=== PATIENT | male | born 1940 | race Caucasian/White ===

== ENCOUNTER 2016-08-05 00:26 | Inpatient (IN) ==
--- NOTE | 2016-08-05 00:31 | Emergency Department Note ---
Disposition Clinical Impression: Partial small bowel obstruction Disposition: Admitted As Inpatient Condition: Fair Referrals: NO,PCP [Primary Care Provider] - Forms: Work/School Release, ED Satisfaction Letter Time of Disposition: 02:35 Abdominal Pain HPI - General Chief Complaint: ED Abdominal Pain Stated Complaint: abd pain/poss small bowel obstruction Time Seen by Provider: 08/05/16 00:29 Source: patient Mode of arrival: ambulatory Limitations: no limitations Nursing Notes Reviewed: Yes Vital Signs Reviewed: Yes - History of Present Illness HPI Narrative: 76-year-old male with abdominal pain and distention for the last 3 days. Patient states that he has had decreased by mouth intake since this time. He states that he had an evaluation by his primary care physician Dr. Cortes who ordered x-ray that showed questionable small bowel obstruction. Patient states that he has not been constipated or obstipated, he had a grayish colored bowel movement at 19:00 last night, denies hematochezia, or melena. This was this evening. He states that he is unable to tolerate small amounts of food but after he had the x-ray did have some chicken noodle soup was able to tolerate this without throwing up. Patient denies any emesis. Patient reports that he has a history of a prostate surgery as well as a hernia repair at [place] Denies fever chills weight loss, diarrhea, Pt Subjective Complaint: abdominal pain Onset (ago): day(s) (5) Consistency: intermittent Location: epigastric Pain Severity: moderate Pain Scale: 6 Quality: cramping, aching Radiation: none Improves with: nothing Worsens with: nothing Associated symptoms: Reports: nausea, constipation. Denies: diarrhea, fever, chills Treatments prior to arrival: none - Related Data Home Medications Medication Instructions Recorded Confirmed Ascorbate Calcium [Vitamin C] 500 mg PO DAILY 03/04/16 03/04/16 Aspirin 81 mg PO DAILY 03/04/16 03/04/16 Glucosamine/Methylsulfonylmeth 1 each PO DAILY 03/04/16 03/04/16 [Glucosamine-MSM Caplet] Lisinopril/Hydrochlorothiazide 1 each PO DAILY 03/04/16 03/04/16 [Zestoretic 10-12.5 mg Tablet] Metoprolol XL (24 HR) Succ [Toprol 12.5 mg PO DAILY 03/04/16 03/04/16 XL] Multivitamin [One Daily Essential] 1 each PO DAILY 03/04/16 03/04/16 Naproxen [Naprosyn] 500 mg PO BID 03/04/16 03/04/16 [place]-3/Dha/Epa/Fish Oil [Fish Oil 1 cap PO DAILY 03/04/16 03/04/16 1,000 mg Softgel] Pioglitazone HCl/Metformin HCl 1 each PO DAILY 03/04/16 03/04/16 [Actoplus Met Xr 30-1,000 mg Tb] Probenecid [Benemid] 250 mg PO BID 03/04/16 03/04/16 Simvastatin [Zocor] 20 mg PO HS 03/04/16 03/04/16 Vitamin B Complex 1 each PO DAILY 03/04/16 03/04/16 Previous Rx's Medication Instructions Recorded Cephalexin [Keflex] 500 mg PO TID 7 Days 03/04/16 Hydrocodone/Acetaminophen [[place] 1 each PO Q4-6H PRN #40 tablet 03/04/16 7.5-325 Tablet] Allergies Allergy/AdvReac Type Severity Reaction Status Date / Time No Known Allergies Allergy Verified 03/04/16 13:19 All systems ED: reviewed and negative except as stated. Constitutional: Reports: fever, chills, weakness Cardiovascular: Reports: chest pain, palpitations Respiratory: Reports: cough, dyspnea Gastrointestinal: Reports: as per HPI, abdominal pain, nausea, constipation. Denies: vomiting, diarrhea, hematemesis, melena Genitourinary: Denies: urgency, dysuria Musculoskeletal: Denies: back pain, neck pain Neurological: Denies: headache, weakness Abdominal Pain PMH - Past Medical History Medical history: Reports: cancer, coronary artery disease, diabetes, hypertension Psychiatric history: Reports: no psych history - Social History Smoking status: Never smoker Alcohol use: Reports: occasionally Drug use: Reports: none Physical Exam Constitutional: alert and oriented, in NAD, appears stated age, vital signs reviewed and within normal limits Neck: normal inspection, neck is supple, trachea midline Resp: normal chest inspection, CTA bilaterally, no resp distress CV: RRR, no m/g/r GI: Softly distended abdomen, no rebound or guarding, hypoactive bowel sounds, mild to moderate tenderness to palpation diffusely Back: normal inspection, no tenderness to palpation Neuro: A&O3, no gross motor or sensory deficits bilaterally Skin: No rashes, skin warm, dry, intact Course Course Narrative: 76-year-old male with abdominal exam, moderate tenderness to palpation and an x- ray that showed possible small bowel obstruction with a CT scan of abdomen, IV fluid rehydrate keep nothing by mouth at this time check abdominal labs and reassess - Reevaluation(s) Reevaluation #1: Found to have partial small bowel obstruction, rads favors partial small bowel obstruction versus complete on noncontrast CT scan, is with a nontender nonsurgical abdomen, softly distended, NG tube ordered, patient to be admitted to medicine service Dr. Wells, for serial abdominal exams NG decompression and surgical consult. Time: 02:34 Vital Signs Temperature 98.9 F 08/05/16 00:28 Pulse Rate 67 08/05/16 00:28 Respiratory Rate 18 08/05/16 00:28 Blood Pressure 138/81 08/05/16 00:28 O2 Sat by Pulse Oximetry 97 08/05/16 00:28 Temperature 98.9 F 08/05/16 00:28 Pulse Rate 67 08/05/16 00:28 Respiratory Rate 18 08/05/16 00:28 Blood Pressure 138/81 08/05/16 00:28 O2 Sat by Pulse Oximetry 97 08/05/16 00:28 Oxygen Delivery Oxygen Delivery Room Air Abdominal Pain - MDM Narrative Medical decision making narrative: Partial small bowel obstruction admitted to medicine service NG decompression started in the emergency department nothing by mouth, IV fluids, analgesics - Differential Diagnosis Differential Diagnosis: Likely: abdominal pain non-specific, acute appendicitis , diverticulitis, diverticulosis, pancreatitis, small bowel obstruction - Medical Records Medical records reviewed: Yes I reviewed the patient's medical records. - Lab Data Lab results reviewed: Yes I reviewed the patient's lab results. Result diagrams: 08/05/16 00:58 08/05/16 00:58 Lab Results 08/05/16 08/05/16 08/05/16 Range/Units 00:58 00:58 00:58 WBC 10.5 (4.3-11.1) K/mcL RBC 4.54 (4.19-5.50) M/mcL Hgb 14.3 (12.9-16.9) g/dL Hct 41.4 (37.5-50.1) % MCV 91.2 (83.0-100.0) fL MCH 31.5 (28.0-33.3) pg MCHC 34.5 (31.6-35.5) g/dL RDW 13.0 (11.5-14.5) % Plt Count 267 (140-400) K/mcL MPV 10.4 (9.4-12.4) fL Immature Gran % 0.4 (0-4) % Seg Neutrophils % 64.2 % Lymphocytes % 23.3 % Monocytes % 9.7 % Eosinophils % 1.2 % Basophils % 1.2 % Neutrophils # 6.7 (1.6-8.9) K/mcL Lymphocytes # 2.4 (0.6-4.6) K/mcL Monocytes # 1.0 (0.0-1.3) K/mcL Eosinophils # 0.1 (0.0-0.6) K/mcL Basophils # 0.1 (0.0-0.2) K/mcL Immature Plt Fraction 5.2 (1.1-6.1) % Sodium 138 (136-145) mEq/L Potassium 4.0 (3.5-4.5) mEq/L Chloride 99 (98-109) mEq/L Carbon Dioxide 23 (19-29) mEq/L BUN 23 (8-26) mg/dL Creatinine 1.14 (0.72-1.25) mg/dL Est GFR ( Amer) > 60 (> 60) Est GFR (Non-Af Amer) > 60 (> 60) BUN/Creatinine Ratio 20 (6-26) Glucose 120 H (70-99) mg/dL Calculated Osmolality 291 (280-300) Calcium 10.8 (8.6-10.8) mg/dL Total Bilirubin 1.1 (0.2-1.2) mg/dL Direct Bilirubin 0.4 (0.0-0.5) mg/dL Indirect Bilirubin 0.7 (0.0-1.2) mg/dL AST 30 (5-34) Units/L ALT 36 (0-55) Units/L Alkaline Phosphatase 62 (38-126) Units/L Troponin I 0.03 (0-0.03) ng/mL Serum Total Protein 7.4 (6.0-8.3) g/dL Albumin 3.9 (3.5-5.0) g/dL Globulin 3.5 (2.4-3.5) g/dL Albumin/Globulin Ratio 1.1 (1.1-2.2) Amylase 36 (25-125) Units/L Lipase 24 (8-78) Units/L - Radiology Data Radiology results reviewed: Yes I reviewed the patient's radiology results. Abdomen/Pelvis CT 08/05/16 00:37 IMPRESSION: 1. Small bowel obstruction, probably a partial small bowel obstruction with a possible transition point in the central mesentery. 2. Diverticulosis with no definite evidence for diverticulitis. 3. Cholelithiasis without evidence to suggest acute cholecystitis. 4. Cystic lesion in the pancreatic tail. MRI with MRCP protocol is recommended for further evaluation. 5. Coronary artery disease. D/ / Harvey Jones MD / Harvey Jones MD Interpreting Provider: Harvey Jones MD - EKG Data EKG attestation: Yes I reviewed and interpreted this EKG. EKG shows normal: sinus rhythm (73 bpm FL-2 26 QRS 94 QTc 407) Rhythm: NSR [place]/QRS: normal When compared to previous EKG there are: no significant changes Interpretation: no acute changes - Core Measures AMI Core Measures Followed: No Measure Exclusions: not indicated Attestation Statement - Attestation Attestation: I examined this patient and my medical decision-making was reviewed with the STE[employer] GENERATING POWERPLANT MECHANIC/PA/Advanced Practice Nurse/Resident Physician. I agree with the documented findings, disposition and treatment plan as described except to the extent set forth below.
[2016-08-05] MEDS ORDERED: 0.9 % Sodium Chloride 1,000 ML IVC ONE (00:44)
[2016-08-05] MEDS ORDERED: Dicyclomine 20 MG/2 ML AMPUL IM ONE (00:44)
[2016-08-05] MEDS ORDERED: Ondansetron 4 MG/2 ML VIAL IVP ONE (00:44)
[2016-08-05 01:05] LABS: Basophils # 0.1 K/mcL (0.0-0.2); Basophils % 1.2 %; Eosinophils # 0.1 K/mcL (0.0-0.6); Eosinophils % 1.2 %; Hematocrit 41.4 % (37.5-50.1); Hemoglobin 14.3 g/dL (12.9-16.9); Immature Granulocytes % 0.4 % (0-4); Immature Platelets 5.2 % (1.1-6.1); Lymphocytes # 2.4 K/mcL (0.6-4.6); Lymphocytes % 23.3 %; Mean Corpuscular HGB Conc 34.5 g/dL (31.6-35.5); Mean Corpuscular Hemoglobin 31.5 pg (28.0-33.3); Mean Corpuscular Volume 91.2 fL (83.0-100.0); Mean Platelet Volume 10.4 fL (9.4-12.4); Monocytes % 9.7 %; Neutrophils # 6.7 K/mcL (1.6-8.9); Platelet Count 267 K/mcL (140-400); Red Blood Count 4.54 M/mcL (4.19-5.50); Segmented Neutrophils % 64.2 %
[2016-08-05] MEDS ORDERED: *HR* Morphine 2 MG/ML SYRINGE IVP ONE (01:19)
[2016-08-05 01:24] LABS: Alanine Aminotransferase 36 Units/L (0-55); Albumin 3.9 g/dL (3.5-5.0); Albumin/Globulin Ratio 1.1 (1.1-2.2); Alkaline Phosphatase 62 Units/L (38-126); Amylase 36 Units/L (25-125); Aspartate Amino Transferase 30 Units/L (5-34); BUN/Creatinine Ratio 20 (6-26); Bilirubin,Direct 0.4 mg/dL (0.0-0.5); Bilirubin,Indirect 0.7 mg/dL (0.0-1.2); Bilirubin,Total 1.1 mg/dL (0.2-1.2); Blood Urea Nitrogen 23 mg/dL (8-26); Calcium 10.8 mg/dL (8.6-10.8); Carbon Dioxide 23 mEq/L (19-29); Chloride 99 mEq/L (98-109); Globulin 3.5 g/dL (2.4-3.5); Glucose 120 mg/dL (70-99); Lipase 24 Units/L (8-78); Osmolality,Calculated 291 (280-300); Sodium 138 mEq/L (136-145); Total Protein 7.4 g/dL (6.0-8.3); eGFR For African Americans > 60 (> 60); eGFR For Non-African Americans > 60 (> 60)
[2016-08-05] MEDS ORDERED: *HR* Morphine 2 MG/ML SYRINGE IV ONE (03:52)
--- NOTE | 2016-08-05 05:23 | Internal Med History&Physical ---
Date of Encounter: 08/05/16 Time of Encounter: 05:21 Assessment and Plan (1) Partial small bowel obstruction Current visit: Yes Status: Acute Continue with NG tube, connect NG tube to suction. NPO, iv fluids. Obtain x-ray. Consultation with surgical team. Discussed with patient. (2) Type 2 diabetes mellitus Current visit: Yes Status: Acute Accuchecks. RISS. Qualifiers: Diabetes mellitus complication status: without complication Diabetes mellitus senior care insulin use: without baggageman use Qualified Code(s): E11.9 - Type 2 diabetes mellitus without complications (3) Hypertension Current visit: Yes Status: Acute Continue monitoring. Qualifiers: Hypertension type: essential hypertension Qualified Code(s): I10 - Essential (primary) hypertension (4) DVT prophylaxis Current visit: Yes Status: Acute Heparin sq. Internal Medicine - H&P: HPI Chief complaint: abd pain Admitted From: Emergency Dept Plans for Post Hospital Care: Home History of present illness: Mr. Phillips is a 76 year old male with past medical history of diabetes, hypertension, right ear squamous cell carcinoma, hypertension, presented to the emergency department complaining of progressive abdominal pain in the epigastric area, abdomen distention which started 4 days ago. The patient presented to see his primary care physician who obtained x-rays and was suggestive of a small bowel obstruction. Upon arrival to the emergency department he had CT scan of the abdomen which revealed similar findings, the patient was admitted for further management and workup. A nasogastric tube was placed in the emergency department. She states that for the last few years he has similar events every 6 months or so. His last bowel movement was last night , he denies diarrhea or constipation, he has lost appetite recently. Denies the use of anticoagulants or other blood thinners. However, he takes aspirin occasionally. Past Med Surg Social Fam HX - Past Medical History Medical history: cancer, coronary artery disease, diabetes, hypertension Psychiatric history: no psych history - Past Surgical History Surgical History: herniorrhaphy - Social History Smoking Status: Never smoker Smokeless Tobacco Status: No Alcohol use: occasionally Drug use: none Internal Medicine - H&P: Meds Ascorbate Calcium [Vitamin C] 500 mg PO DAILY 03/04/16 [History] Aspirin 81 mg PO DAILY 03/04/16 [History] Cephalexin [Keflex] 500 mg PO TID 7 Days 03/04/16 [Rx] Glucosamine/Methylsulfonylmeth [Glucosamine-MSM Caplet] 1 each PO DAILY [History] Hydrocodone/Acetaminophen [[place] 7.5-325 Tablet] 1 each PO Q4-6H PRN #40 tablet 03/04/16 [Rx] Lisinopril/Hydrochlorothiazide [Zestoretic 10-12.5 mg Tablet] 1 each PO DAILY [History] Metoprolol XL (24 HR) Succ [Toprol XL] 12.5 mg PO DAILY 03/04/16 [History] Multivitamin [One Daily Essential] 1 each PO DAILY 03/04/16 [History] Naproxen [Naprosyn] 500 mg PO BID 03/04/16 [History] [place]-3/Dha/Epa/Fish Oil [Fish Oil 1,000 mg Softgel] 1 cap PO DAILY 03/04/16 [ History] Pioglitazone HCl/Metformin HCl [Actoplus Met Xr 30-1,000 mg Tb] 1 each PO DAILY 03/04/16 [History] Probenecid [Benemid] 250 mg PO BID 03/04/16 [History] Simvastatin [Zocor] 20 mg PO HS 03/04/16 [History] Vitamin B Complex 1 each PO DAILY 03/04/16 [History] Allergies No Known Allergies Allergy (Verified 03/04/16 13:19) All Systems PM: A 10-system review of systems was performed and is negative for pertinent findings except as documented above in the HPI. - Constitutional Constitutional: as per HPI, no chills, no fever(s), no night sweats - EENT Eyes: as per HPI, no change in vision, no discharge, no pain, no photophobia Ears: as per HPI, no ear discharge, no ear pain, no tinnitus Nose, mouth and throat: as per HPI, no dysphagia, no nasal discharge, no neck pain, no sore throat - Breasts Breasts: as per HPI - Cardiovascular Cardiovascular ROS IM: as per HPI, no chest pain, no diaphoresis, no dyspnea, no lightheadedness, no palpitations, no syncope - Respiratory Respiratory: as per HPI, no cough, no dyspnea, no wheezing, no excessive phlegm production - Gastrointestinal Gastrointestinal: as per HPI, abdominal pain, no diarrhea, no hematemesis, no hematochezia, no melena, no nausea, no vomiting - Genitourinary Genitourinary ROS male: as per HPI - Musculoskeletal Musculoskeletal ROS IM: as per HPI, no numbness, no tingling - Integumentary Integumentary IM: as per HPI, no rash, no unusual bruising - Neurological Neurological ROS: as per HPI, no confusion, no convulsions, no focal weakness, no numbness, no tingling, no tremor(s) - Psychiatric Psychiatric: as per HPI - Endocrine Endocrine IM: as per HPI - Hematologic/Lymphatic Hematologic/Lymphatic: as per HPI, no easy bruising - Allergic/Immunologic Allergic/Immunologic: as per HPI - Constitutional Vitals: Temp Pulse Resp BP Pulse Ox 98.0 F 83 15 136/68 93 08/05/16 04:34 08/05/16 04:34 08/05/16 04:34 08/05/16 04:34 08/05/16 04:34 General appearance: Present: cooperative, A&O X 3, pleasant, no acute distress, obese Exam: NG tube placed. - Head Head exam: Present: atraumatic, normocephalic - Eye Eye exam: Present: PERRL, conjuntiva pink, sclera anicteric Pupils: Present: PERRL - Neck Neck exam general surgery: Present: supple, trachea midline. Absent: lymphadenopathy - Respiratory Respiratory exam: Present: CTAB. Absent: accessory muscle use, rales, rhonchi, wheezes - Cardiovascular Cardiovascular exam: Present: RRR, +S1, +S2. Absent: diastolic murmur, gallop, rubs, systolic murmur - GI/Abdominal GI/Abdominal exam: Present: no peritoneal signs. Absent: distended, tenderness Additional comments: distented, bowel sounds present, no tenderness upon palpation - Extremities Exam Extremities exam: Present: warm, radial pulses palpable and symetrical. Absent : calf tenderness, cyanotic, pedal edema - Neurological Exam Neurological exam: Present: CN II-XII intact, oriented X3, no focal deficits. Absent: pronater drift, facial droop, speech deficit - Skin Skin exam: Present: dry, intact Internal Med - H&P Results - Labs CBC & Chem 7: 08/05/16 00:58 08/05/16 00:58
[2016-08-05] MEDS ORDERED: Naloxone 0.4 MG/ML INJ IVP PRN ×2 (05:27→05:29)
[2016-08-05] MEDS ORDERED: Dextrose Gel 15 GM PO PRN ×2 (05:29)
[2016-08-05] MEDS ORDERED: *HR* Dextrose 50 % in Water (Syg) 50 ML SYRINGE IVP PRN (05:29)
[2016-08-05] MEDS ORDERED: D5% in Water 1,000 ML IVC PRN (05:29)
[2016-08-05] MEDS ORDERED: Ondansetron 4 MG/2 ML VIAL IVP PRN (05:29)
[2016-08-05] MEDS ORDERED: *HR* Morphine 2 MG/ML SYRINGE IVP PRN (05:29)
[2016-08-05] MEDS: Insulin LISPRO 300 UNITS/3 ML VIAL SQ SCH ×3 (06:05→18:08)
[2016-08-05] MEDS: Famotidine 20 MG/2 ML VIAL IVP SCH ×2 (06:09→18:06)
[2016-08-05] MEDS: *HR* Heparin 5,000 UNIT/ML VIAL SQ SCH ×2 (06:10→18:10)
[2016-08-05] MEDS: 0.9 % Sodium Chloride 1,000 ML IVC SCH ×2 (06:10→18:04)
--- NOTE | 2016-08-05 09:27 | Electrocardiograph Report ---
[address] [place] [address] Test Date: 2016-08-05 Pat Name: Chato Phillips Department: 104 Room: 3A45 Gender: M Bacon De Rinder: [facility] : 1940 Requested By: Samy Lowe Order Number: [id number] Reading MD: Jose Manuel Wright MD Measurements Intervals [place] Rate: 73 P: 75 ID: [id number] QRS: -47 QRSD: 94 T: 48 QT: 381 QTc: 407 Interpretive Statements SINUS RHYTHM WITH FIRST DEGREE AV BLOCK OCCASIONAL VENTRICULAR PREMATURE COMPLEXES OCCASIONAL SUPRAVENTRICULAR PREMATURE COMPLEXES LOW QRS VOLTAGE IN PRECORDIAL LEADS POSSIBLE RIGHT VENTRICULAR CONDUCTION DELAY INFERIOR MYOCARDIAL INFARCTION, OF INDETERMINATE AGE WITH POSSIBLE POSTERIOR EXTENSION Electronically Signed On 08-05-2016 9:25:42 EDT by Jose Manuel Wright MD
[2016-08-05] MEDS ORDERED: Chloraseptic Spray 177 ML BOTTLE MM PRN (10:02)
--- NOTE | 2016-08-05 10:14 | General Surgery Consult Note ---
<RolonValentino Ant - Last Filed: 08/05/16 10:15> Date of Encounter: 08/05/16 Time of Encounter: 10:09 Assessment and Plan (1) Partial small bowel obstruction Current Visit: Yes Status: Acute Episodic history of abdominal pain, distention, and no BM over the past few years. Current 4-5 day history of severe abdominal distention and pain with BM unusually small and hard. Worse after eating. Abdominal exam revealed high pitch tinkles, with diffuse pain on palpation and distention. CT A/P: Small bowel obstruction, probably a partial small bowel obstruction with a possible transition point in the central mesentery. D/t his history of laparoscopic procedures with radiological findings and physical examination including high pitched tinkles, this is concerning for a mechanical SBO, although an ileus cannot be excluded at this time. Treatment will commence with conservative measures including: NPO, NG-LIWS, pain control, anti-emetics, IVF. (2) Hypertension Current Visit: Yes Status: Acute currently normotensive. Takes Toprox xl and Zestoretic. 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 Phillips is a pleasant 76-year-old male who presents to [facility] with abdominal pain and distention. He has a past medical history significant for non-insulin dependent type II diabetes, and hypertension. He is a past surgical history of laparoscopic umbilical hernia repair, and laparoscopic prostate surgery. He states that over the last 4 to 5 days he has had increasing abdominal distention and diffuse abdominal pain. The pain is worse after eating. He has had episodes like this over the course of the last 2 to 3 years, with abdominal distention and pain, which has resolved with 2 to 3 days of not eating and then having a large amount of diarrhea. This time it is not resolved. He visited his PCP who took an abdominal x-ray which revealed a possible small bowel obstruction. He was instructed not to eat after he had already had a meal, and his abdominal pain increased and was recommended for him to come to the emergency department. He has been having small formed hard bowel movements during the past week, but this is not typical for him. He typically has one large bowel movement per day. He currently denies nausea, vomiting, fever, chills, shortness of breath, chest pain, melanoma, hematochezia, hemoptysis. Past Med Surg Social Fam HX - Past Medical History Medical history: cancer, coronary artery disease, diabetes, hypertension Psychiatric history: no psych history - Past Surgical History Surgical History: herniorrhaphy - Social History Smoking Status: Never smoker Smokeless Tobacco Status: No Alcohol use: occasionally Drug use: none - Family History Mother Living Status: Age at : 80 Cause of : Lung Cancer Hx Family Cancer: Yes Father Living Status: Age at : 77 Cause of : Massive Stroke Hx Family Cardiac Disorders: Yes Medications and Allergies Aspirin 81 mg PO DAILY 03/04/16 [History] Glucosamine/Methylsulfonylmeth [Glucosamine-MSM Caplet] 1 each PO DAILY [History] Lisinopril/Hydrochlorothiazide [Zestoretic 10-12.5 mg Tablet] 1 each PO DAILY [History] Metoprolol XL (24 HR) Succ [Toprol XL] 12.5 mg PO DAILY 03/04/16 [History] Multivitamin [One Daily Essential] 1 each PO DAILY 03/04/16 [History] Naproxen [Naprosyn] 500 mg PO BID 03/04/16 [History] [place]-3/Dha/Epa/Fish Oil [Fish Oil 1,000 mg Softgel] 1 cap PO DAILY 03/04/16 [ History] Probenecid [Benemid] 250 mg PO BID 03/04/16 [History] Vitamin B Complex 1 each PO DAILY 03/04/16 [History] Cholecalciferol (D-3) [Vitamin D] 1,000 unit PO DAILY 08/05/16 [History] Metformin HCl [Metformin HCl ER] 500 mg PO QPM 08/05/16 [History] Simvastatin [Zocor] 40 mg PO DAILY 08/05/16 [History] Allergies No Known Allergies Allergy (Verified 08/05/16 13:06) Review of Systems All systems PM: A 10-system review of systems was performed and is negative for pertinent findings except as documented above in the HPI. General Surgery Exam Initial Vital Signs Temp Pulse Resp BP Pulse Ox 98.9 F 67 18 138/81 97 08/05/16 00:28 08/05/16 00:28 08/05/16 00:28 08/05/16 00:28 08/05/16 00:28 - General physical appearance well developed, well nourished, no distress - ENT Other (NG in place) - Neck trachea midline - Respiratory normal expansion, clear to auscultation - Cardiovascular Cardiovascular exam: Present: RRR, no murmurs/rubs/gallops - Abdomen Abdomen general surgery: Present: bowel sounds present (high pitched tinkles), soft, distended, tender. Absent: guarding, rebound, rigid Abdominal Tenderness: Present: epigastic, diffusely - Neurologic Present: CN 2-12 grossly intact - Psychiatric Psychiatric general surgery: Present: A&Ox3 Exam Initial Vital Signs Temp Pulse Resp BP Pulse Ox 98.9 F 67 18 138/81 97 08/05/16 00:28 08/05/16 00:28 08/05/16 00:28 08/05/16 00:28 08/05/16 00:28 Results - Labs 08/05/16 00:58 08/05/16 00:58 Abnormal lab results Glucose 120 mg/dL (70-99) H 08/05/16 00:58 POC Glucose 107 (58-89) H 08/05/16 05:55 All other labs normal. Consult Discharge Plan - Plan Referrals: Jostin Cortes MD [Primary Care Provider] - <Rena Andujar - Last Filed: 08/06/16 17:59> Date of Encounter: 08/05/16 Assessment and Plan (1) DVT prophylaxis Current Visit: Yes Status: Acute (2) Hypertension Current Visit: Yes Status: Acute Qualifiers: Hypertension type: essential hypertension Qualified Code(s): I10 - Essential (primary) hypertension (3) Partial small bowel obstruction Current Visit: Yes Status: Acute will plan conservative therapy, npo, prn pain control, ngt decompression, ivf hydration serial abdominal exams (4) Type 2 diabetes mellitus Current Visit: Yes Status: Acute Qualifiers: Diabetes mellitus complication status: without complication Diabetes mellitus longterm insulin use: without longterm use Qualified Code(s): E11.9 - Type 2 diabetes mellitus without complications History of Present Illness History of present illness: Patient has previously had similar episodes of bowel obstructions that he states he has been able to recognize, make himself have emesis to relieve the abdominal distention and pressure. He routinely then previously began passing flatus and stool and they have resolved in short time frame. This time he wasnt able to give himself any relief with making himself throw up. He presented to ED with several days of abdominal pain and discomfort and distention. No flatus or bm. He had seen his PCP and films were done showing a bowel obstruction and he was referred to the ED where he was admitted, ngt placed and made npo, hydrated with IVF. Review of Systems All systems PM: A 10-system review of systems was performed and is negative for pertinent findings except as documented above in the HPI. General Surgery Exam Initial Vital Signs Temp Pulse Resp BP Pulse Ox 98.9 F 67 18 138/81 97 08/05/16 00:28 08/05/16 00:28 08/05/16 00:28 08/05/16 00:28 08/05/16 00:28 - General physical appearance well developed, well nourished, no distress - Eyes PERRL, normal ocular movement - ENT normal mucosa, normocephalic - Neck trachea midline - Respiratory normal expansion, normal respiratory effort - Cardiovascular Cardiovascular exam: Present: RRR - Abdomen Abdomen general surgery: Present: bowel sounds present, soft, distended, tender (mildly) - Integumentary Integumentary general surgery: Present: warm and dry, no abnormal pigmentation - Neurologic Present: CN 2-12 grossly intact - Musculoskeletal Present: normal posture - Psychiatric Psychiatric general surgery: Present: A&Ox3, speech is normal Exam Initial Vital Signs Temp Pulse Resp BP Pulse Ox 98.9 F 67 18 138/81 97 08/05/16 00:28 08/05/16 00:28 08/05/16 00:28 08/05/16 00:28 08/05/16 00:28 Results - Labs 08/06/16 04:43 08/06/16 04:43 Abnormal lab results POC Glucose 91 (58-89) H 08/06/16 17:18 Diabetes panel 08/06/16 Range/Units 04:43 Sodium 139 (136-145) mEq/L Potassium 3.7 (3.5-4.5) mEq/L Chloride 104 (98-109) mEq/L Carbon Dioxide 23 (19-29) mEq/L BUN 12 D (8-26) mg/dL Creatinine 0.86 (0.72-1.25) mg/dL Glucose 89 (70-99) mg/dL Calcium 9.4 (8.6-10.8) mg/dL AST 26 (5-34) Units/L ALT 29 (0-55) Units/L Alkaline Phosphatase 54 (38-126) Units/L Albumin 3.5 (3.5-5.0) g/dL Calcium panel 08/06/16 Range/Units 04:43 Calcium 9.4 (8.6-10.8) mg/dL Albumin 3.5 (3.5-5.0) g/dL Pituitary panel 08/06/16 Range/Units 04:43 Sodium 139 (136-145) mEq/L Potassium 3.7 (3.5-4.5) mEq/L Chloride 104 (98-109) mEq/L Carbon Dioxide 23 (19-29) mEq/L BUN 12 D (8-26) mg/dL Creatinine 0.86 (0.72-1.25) mg/dL Glucose 89 (70-99) mg/dL Calcium 9.4 (8.6-10.8) mg/dL Adrenal panel 08/06/16 Range/Units 04:43 Sodium 139 (136-145) mEq/L Potassium 3.7 (3.5-4.5) mEq/L Chloride 104 (98-109) mEq/L Carbon Dioxide 23 (19-29) mEq/L BUN 12 D (8-26) mg/dL Creatinine 0.86 (0.72-1.25) mg/dL Glucose 89 (70-99) mg/dL Calcium 9.4 (8.6-10.8) mg/dL Total Bilirubin 1.2 (0.2-1.2) mg/dL AST 26 (5-34) Units/L ALT 29 (0-55) Units/L Alkaline Phosphatase 54 (38-126) Units/L Albumin 3.5 (3.5-5.0) g/dL All other labs normal. - Imaging CT scan - abdomen: report reviewed, image reviewed CT scan - pelvis: report reviewed, image reviewed - Attending Attestation I examined this patient and my medical decision-making was reviewed with the FRUIT HARVESTER/PA/Advanced Practice Nurse/Resident Physician. I agree with the documented findings, disposition and treatment plan as described except to the extent set forth below. I examined this patient and my medical decision-making was reviewed with the FRUIT HARVESTER/PA/Advanced Practice Nurse/Resident Physician. I agree with the documented findings, disposition and treatment plan as described except to the extent set forth below.
--- NOTE | 2016-08-05 15:16 | Internal Med Progress Note ---
Date of Encounter: 08/05/16 Time of Encounter: 15:14 - Assessment and plan (1) Partial small bowel obstruction Current Visit: Yes Status: Acute Assessment and plan: Continue NG tube to suction. Check KUB to verify placement since that NG tube is not draining a lot of gastric content. Reposition as necessary. IV morphine for pain. (2) Type 2 diabetes mellitus Current Visit: Yes Status: Acute Assessment and plan: Low-dose insulin sliding scale. Check fingerstick every 6 hours. 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 Continues IV metoprolol as needed. Qualifiers: Hypertension type: essential hypertension Qualified Code(s): I10 - Essential (primary) hypertension (4) DVT prophylaxis Current Visit: Yes Status: Acute - Subjective Interval history: Patient reports that his abdominal pain has improved over last 24 hours, at this point is 0/10, denies any nausea. He had an NG tube placed yesterday when he presented with small bowel obstruction. He reports severe discomfort in the back of his throat secondary to the NG tube. - Constitutional Vitals: Temp Pulse Resp BP Pulse Ox 97.3 F L 71 14 123/73 96 08/05/16 11:30 08/05/16 11:30 08/05/16 11:30 08/05/16 11:30 08/05/16 11:30 General appearance: Present: cooperative, A&O X 3, pleasant, no acute distress, obese - Eye Eye exam: Present: PERRL, conjuntiva pink, sclera anicteric Pupils: Present: PERRL - Respiratory Respiratory exam: Present: CTAB. Absent: accessory muscle use, rales, rhonchi, wheezes - Cardiovascular Cardiovascular exam: Present: RRR, +S1, +S2. Absent: diastolic murmur, gallop, rubs, systolic murmur - GI/Abdominal GI/Abdominal exam: Present: diminished bowel sounds, soft, no peritoneal signs. Absent: distended, tenderness Internal Medicine: Result - Labs CBC & Chem 7: 08/05/16 00:58 08/05/16 00:58 - Impressions Impressions KUB X-Ray 08/05/16 05:30 IMPRESSION: NG tube tube located at the GE junction. Suggest advancement by 10 cm. Partial small bowel obstruction not significantly changed. D/ /05/2016 07:45:41 Randell Martinez MD / [email or web address] Interpreting Provider: Randell Martinez MD Consult Discharge Plan - Plan Referrals: Jostin Cortes MD [Primary Care Provider] -
[2016-08-06] MEDS: Insulin LISPRO 300 UNITS/3 ML VIAL SQ SCH ×4 (01:10→16:44)
[2016-08-06 05:09] LABS: Basophils # 0.1 K/mcL (0.0-0.2); Eosinophils # 0.4 K/mcL (0.0-0.6); Eosinophils % 3.8 %; Hematocrit 39.6 % (37.5-50.1); Hemoglobin 13.2 g/dL (12.9-16.9); Immature Granulocytes % 0.5 % (0-4); Lymphocytes # 2.7 K/mcL (0.6-4.6); Mean Corpuscular HGB Conc 33.3 g/dL (31.6-35.5); Mean Platelet Volume 10.5 fL (9.4-12.4); Monocytes # 1.3 K/mcL (0.0-1.3); Monocytes % 11.8 %; Neutrophils # 6.3 K/mcL (1.6-8.9); Platelet Count 234 K/mcL (140-400); Red Blood Count 4.26 M/mcL (4.19-5.50); Red Cell Distribution Width 13.1 % (11.5-14.5); Segmented Neutrophils % 57.9 %
[2016-08-06 05:26] LABS: Alanine Aminotransferase 29 Units/L (0-55); Albumin 3.5 g/dL (3.5-5.0); Albumin/Globulin Ratio 1.1 (1.1-2.2); Alkaline Phosphatase 54 Units/L (38-126); Aspartate Amino Transferase 26 Units/L (5-34); BUN/Creatinine Ratio 14 (6-26); Bilirubin,Total 1.2 mg/dL (0.2-1.2); Calcium 9.4 mg/dL (8.6-10.8); Carbon Dioxide 23 mEq/L (19-29); Chloride 104 mEq/L (98-109); Globulin 3.2 g/dL (2.4-3.5); Glucose 89 mg/dL (70-99); Osmolality,Calculated 287 (280-300); Potassium 3.7 mEq/L (3.5-4.5); Sodium 139 mEq/L (136-145); Total Protein 6.7 g/dL (6.0-8.3); eGFR For African Americans > 60 (> 60); eGFR For Non-African Americans > 60 (> 60)
[2016-08-06 05:27] LABS: Blood Urea Nitrogen 12 mg/dL (8-26)
[2016-08-06] MEDS: *HR* Heparin 5,000 UNIT/ML VIAL SQ SCH ×2 (06:07→17:57)
[2016-08-06] MEDS: Famotidine 20 MG/2 ML VIAL IVP SCH ×2 (06:07→17:52)
--- NOTE | 2016-08-06 10:49 | General Surgery Progress Note ---
Date of Encounter: 08/06/16 Time of Encounter: 12:50 - Assessment and Plan (1) Partial small bowel obstruction Current Visit: Yes Status: Acute 08/06/16: Having bowel sounds. passing flatus. no nausea. No abdominal tenderness. Scant NG output. Will d/c NG and start clears and see how patient tolerates. (2) Hypertension Current Visit: Yes Status: Acute currently normotensive. Takes Toprox xl and Zestoretic at home. continue to hold unless BP becomes elevated >160/100 Qualifiers: Hypertension type: essential hypertension Qualified Code(s): I10 - Essential (primary) hypertension (3) Type 2 diabetes mellitus Current Visit: Yes Status: Acute on low dose sliding scale insulin Qualifiers: Diabetes mellitus complication status: without complication Diabetes mellitus group home insulin use: without long term care pharmacist use Qualified Code(s): E11.9 - Type 2 diabetes mellitus without complications Subjective Narrative: Patient seen and examined. Still passing flatus. No nausea. Slight abdominal pain/discomfort. Afebrile. Was agitated this am and felt like doctors here have been "brushing him off". I took the time to explain his diagnosis and the plan. I spent 30 minutes in the room with him this am. He voiced understanding with the plan of care. passing flatus, no bm, no nausea, pain improved Objective Vital Signs - Last 8 Hours Temp Pulse Resp BP Pulse Ox 08/06/16 08:46 97.9 F 77 14 123/73 95 08/06/16 04:30 98.3 F 84 16 120/80 93 Intake and Output 08/05/16 08/06/16 08/06/16 23:59 07:59 15:59 Intake Total 1000 / 1000 0 / 0 Output Total 500 / 500 400 / 400 0 / 0 Balance 500 / 500 -400 / -400 0 / 0 Intake: IV Fluids 1000 / 1000 0.9 % Sodium Chloride 1, 1000 / 1000 000 ML @ 100 mls/hr IVC . Q10H MORENA Rx#:[id number] Oral 0 / 0 0 / 0 Output: Urine 500 / 500 400 / 400 0 / 0 Gastric Drainage 0 / 0 0 / 0 Other: Meal NPO lunch NPO Weight 95.6 kg Blood Glucose* 87 Patient Weight 08/06/16 23:59 Weight 95.6 kg - General physical appearance well developed, well nourished, no distress - Eyes PERRL, normal ocular movement - ENT normal mucosa, normocephalic - Neck Neck exam: trachea midline - Respiratory normal expansion, normal respiratory effort, clear to auscultation - Cardiovascular Cardiovascular exam: Present: RRR, no murmurs/rubs/gallops - Abdomen Abdomen: Present: bowel sounds present, soft, distended (less so than previously ), tender (minor discomfort). Absent: guarding, rebound Abdominal Tenderness: diffusely - Integumentary no rash, no growths - Neurologic CN 2-12 grossly intact - Musculoskeletal normal posture - Psychiatric oriented to time, oriented to person, oriented to place, memory intact - Labs 08/06/16 04:43 08/06/16 04:43 Vital Signs Temp Pulse Resp BP Pulse Ox 08/06/16 15:51 98.3 F 84 16 111/66 95 08/06/16 13:02 98.0 F 100 18 165/94 08/06/16 11:58 97.2 F L 80 18 120/73 95 08/06/16 08:46 97.9 F 77 14 123/73 95 08/06/16 04:30 98.3 F 84 16 120/80 93 08/06/16 00:18 98.3 F 80 15 129/76 95 08/05/16 20:03 98.0 F 80 16 128/79 94 Intake and Output 08/06/16 08/06/16 08/06/16 07:59 15:59 23:59 Intake Total 0 / 0 360 / 360 Output Total 400 / 400 275 / 275 Balance -400 / -400 85 / 85 Intake: Oral 0 / 0 360 / 360 Output: Urine 400 / 400 275 / 275 Gastric Drainage 0 / 0 Other: Meal Lunch Weight 95.6 kg Blood Glucose* 87 104 Patient Weight 08/06/16 23:59 Weight 95.6 kg Short CBC 08/06/16 Range/Units 04:43 WBC 10.9 (4.3-11.1) K/mcL Hgb 13.2 (12.9-16.9) g/dL Hct 39.6 (37.5-50.1) % Plt Count 234 (140-400) K/mcL Neutrophils # 6.3 (1.6-8.9) K/mcL BMP 08/06/16 Range/Units 04:43 Sodium 139 (136-145) mEq/L Potassium 3.7 (3.5-4.5) mEq/L Chloride 104 (98-109) mEq/L Carbon Dioxide 23 (19-29) mEq/L BUN 12 D (8-26) mg/dL Creatinine 0.86 (0.72-1.25) mg/dL Glucose 89 (70-99) mg/dL Calcium 9.4 (8.6-10.8) mg/dL Liver Function 08/06/16 Range/Units 04:43 Total Bilirubin 1.2 (0.2-1.2) mg/dL AST 26 (5-34) Units/L ALT 29 (0-55) Units/L Alkaline Phosphatase 54 (38-126) Units/L Albumin 3.5 (3.5-5.0) g/dL Consult Discharge Plan - Plan Referrals: Jostin Cortes MD [Primary Care Provider] - - Attending Attestation I examined this patient and my medical decision-making was reviewed with the THEATRE MANAGER/PA/Advanced Practice Nurse/Resident Physician. I agree with the documented findings, disposition and treatment plan as described except to the extent set forth below.
[2016-08-06] MEDS: Metoprolol XL (24 HR) Succ 25 MG TAB.ER.24H PO SCH (16:42)
[2016-08-06] MEDS: Aspirin 81 MG TAB.CHEW PO SCH (16:42)
--- NOTE | 2016-08-06 19:17 | Internal Med Progress Note ---
Date of Encounter: 08/06/16 Time of Encounter: 15:00 - Assessment and plan (1) Partial small bowel obstruction Current Visit: Yes Status: Acute Assessment and plan: NG tube was discontinued. Abdominal exam is benign. Advance diet to clears. IV morphine for pain. We will follow up with general surgery. (2) Type 2 diabetes mellitus Current Visit: Yes Status: Acute Assessment and plan: Low-dose insulin sliding scale. Check fingerstick every 6 hours. 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 Continues IV metoprolol as needed. Will resume oral antihypertensive medication per home regimen. Qualifiers: Hypertension type: essential hypertension Qualified Code(s): I10 - Essential (primary) hypertension (4) DVT prophylaxis Current Visit: Yes Status: Acute Assessment and plan: Subcutaneous heparin. - Subjective Interval history: 08/06/2016 patient reports improvement and abdominal pain, he has been passing some gas, no bowel movement. Patient reports that his abdominal pain has improved over last 24 hours, at this point is 0/10, denies any nausea. He had an NG tube placed yesterday when he presented with small bowel obstruction. He reports severe discomfort in the back of his throat secondary to the NG tube. - Constitutional Vitals: Temp Pulse Resp BP Pulse Ox 98.0 F 87 15 112/72 94 08/06/16 18:56 08/06/16 18:56 08/06/16 18:56 08/06/16 18:56 08/06/16 18:56 General appearance: Present: cooperative, A&O X 3, pleasant, no acute distress, obese - Eye Eye exam: Present: PERRL, conjuntiva pink, sclera anicteric Pupils: Present: PERRL - Respiratory Respiratory exam: Present: CTAB. Absent: accessory muscle use, rales, rhonchi, wheezes - Cardiovascular Cardiovascular exam: Present: RRR, +S1, +S2. Absent: diastolic murmur, gallop, rubs, systolic murmur - GI/Abdominal GI/Abdominal exam: Present: normal bowel sounds, soft, no peritoneal signs. Absent: distended, tenderness - Neurological Exam Neurological exam: Present: CN II-XII intact, oriented X3, no focal deficits. Absent: pronater drift, facial droop, speech deficit Internal Medicine: Result - Labs CBC & Chem 7: 08/06/16 04:43 08/06/16 04:43 Labs: Short CBC 08/06/16 Range/Units 04:43 WBC 10.9 (4.3-11.1) K/mcL Hgb 13.2 (12.9-16.9) g/dL Hct 39.6 (37.5-50.1) % Plt Count 234 (140-400) K/mcL Neutrophils # 6.3 (1.6-8.9) K/mcL BMP 08/06/16 04:43 Sodium 139 Potassium 3.7 Chloride 104 Carbon Dioxide 23 BUN 12 D Creatinine 0.86 Glucose 89 Calcium 9.4 Liver Function 08/06/16 Range/Units 04:43 Total Bilirubin 1.2 (0.2-1.2) mg/dL AST 26 (5-34) Units/L ALT 29 (0-55) Units/L Alkaline Phosphatase 54 (38-126) Units/L Albumin 3.5 (3.5-5.0) g/dL Consult Discharge Plan - Plan Referrals: Jostin Cortes MD [Primary Care Provider] -
[2016-08-06] MEDS ORDERED: Acetaminophen 325 MG TABLET PO PRN (19:57)
[2016-08-07] MEDS: Insulin LISPRO 300 UNITS/3 ML VIAL SQ SCH ×3 (00:40→12:23)
[2016-08-07] MEDS: Famotidine 20 MG/2 ML VIAL IVP SCH (05:44)
[2016-08-07] MEDS: *HR* Heparin 5,000 UNIT/ML VIAL SQ SCH (05:45)
[2016-08-07] MEDS: Aspirin 81 MG TAB.CHEW PO SCH (08:32)
[2016-08-07] MEDS: Metoprolol XL (24 HR) Succ 25 MG TAB.ER.24H PO SCH (08:32)
[2016-08-07 11:21] VITALS: BP 107/69
--- NOTE | 2016-08-07 15:01 | Discharge Summary ---
Date of Encounter: 08/07/16 Time of Encounter: 11:00 - Discharge Diagnosis (1) Partial small bowel obstruction Priority: Primary Status: Acute (2) Type 2 diabetes mellitus Priority: Secondary Status: Acute Qualifiers: Diabetes mellitus complication status: without complication Diabetes mellitus superintendent terminal insulin use: without correction use Qualified Code(s): E11.9 - Type 2 diabetes mellitus without complications (3) Hypertension Priority: Secondary Status: Acute Qualifiers: Hypertension type: essential hypertension Qualified Code(s): I10 - Essential (primary) hypertension (4) DVT prophylaxis Priority: Secondary Status: Acute - Discharge Medications Home Medications: Aspirin 81 mg PO DAILY 03/04/16 [History] Glucosamine/Methylsulfonylmeth [Glucosamine-MSM Caplet] 1 each PO DAILY [History] Lisinopril/Hydrochlorothiazide [Zestoretic 10-12.5 mg Tablet] 1 each PO DAILY [History] Metoprolol XL (24 HR) Succ [Toprol Xl] 12.5 mg PO DAILY 03/04/16 [History] Multivitamin [One Daily Essential] 1 each PO DAILY 03/04/16 [History] Naproxen [Naprosyn] 500 mg PO BID 03/04/16 [History] [place]-3/Dha/Epa/Fish Oil [Fish Oil 1,000 mg Softgel] 1 cap PO DAILY 03/04/16 [ History] Probenecid [Benemid] 250 mg PO BID 03/04/16 [History] Vitamin B Complex 1 each PO DAILY 03/04/16 [History] Cholecalciferol (D-3) [Vitamin D] 1,000 unit PO DAILY 08/05/16 [History] Metformin HCl [Metformin HCl ER] 500 mg PO QPM 08/05/16 [History] Simvastatin [Zocor] 40 mg PO DAILY 08/05/16 [History] Allergies/Adverse Reactions: Allergies No Known Allergies Allergy (Verified 08/05/16 13:06) Procedures/tests Complete & Pending: Procedures Performed prior 72 hours Category Date Time Status MR abdomen wo/w con [MR] Routine MRI 08/05/16 05:43 Completed Date of admission: 08/05/16 05:27 Primary care physician: Jostin Cortes MD Consults: 08/05/16 07:01 Consult to Surgery [CONS] Routine Consulting Provider: [facility] Reason for Consult: SBO Call Completed: No - Patient Status Disposition: Home, Self-Care Condition: Fair Functional capacity at discharge: independent ambulation Overall status at discharge: patient is back to baseline - Discharge Instructions Follow Up With: Jostin Cortes MD [Primary Care Provider] - - Diet and Activity Activity: increase activity as tolerated Diet: diabetic diet (Small frequent meals, high fiber content, stay well hydrated.), low fat, low cholesterol, low salt diet Hospital course: Mr. Phillips is a 76 year old male with past medical history of diabetes, hypertension, right ear squamous cell carcinoma, hypertension, presented to the emergency department complaining of progressive abdominal pain in the epigastric area, abdomen distention and nausea which started 4 days ago. The patient presented to see his primary care physician who obtained x-rays and was suggestive of a small bowel obstruction. Upon arrival to the emergency department he had CT scan of the abdomen which revealed similar findings, the patient was admitted for further management and workup. A nasogastric tube was placed in the emergency department. He was admitted to the medical service. Gen. surgery was consulted. The NG tube was connected to suction and this was maintained for 24 hours. He was given IV opiates for pain and IV fluids for hydration. His condition improved. He started passing gas and his NG tube was discontinued. He was started on clear liquid diet which he tolerated well. He had a bowel movement this morning and his diet was advanced to regular. His abdominal pain has resolved. Has been ambulatory. He denies nausea or vomiting. His back to baseline and will be discharged home. He was instructed about eating small frequent meals and increase fiber content and keep well- hydrated. - Time Spent with Patient Total time spent providing and/or coordinating discharge services: Greater than 30 minutes (I have spent 40 minutes coordinating this discharge) - Constitutional Vitals: Temp Pulse Resp BP Pulse Ox 97.3 F L 92 18 107/69 94 08/07/16 11:14 08/07/16 11:14 08/07/16 11:14 08/07/16 11:14 08/07/16 11:14 General appearance: Present: cooperative, A&O X 3, pleasant, no acute distress, obese - Respiratory Respiratory exam: Present: CTAB. Absent: accessory muscle use, rales, rhonchi, wheezes - Cardiovascular Cardiovascular exam: Present: RRR, +S1, +S2. Absent: diastolic murmur, gallop, rubs, systolic murmur - GI/Abdominal GI/Abdominal exam: Present: normal bowel sounds, soft, no peritoneal signs. Absent: distended, tenderness
== END 2016-08-07 15:53 | disposition home or self-care (01) | DRG 389 ==
LOC: EMEROO 00:26 → 3ANU 00:26 → SUATTDRO 05:27
PROVIDERS: ADMIT Internal Medicine; ATTEND Internal Medicine